=== PATIENT | male | born 1970 ===

== ENCOUNTER 2018-11-21 08:00 | Inpatient (IN) | payer OTHER ==
[~2018-11-21] VITALS: Ht 167.6 cm; Wt 99.8 kg
[2018-11-21] MEDS ORDERED: LISINOPRIL PO (08:54)
[2018-11-26] MEDS ORDERED: HYDROCHLOROTH12.5 M1 PO (11:18)
[2018-11-26] MEDS ORDERED: NIFEDIPINE ER60 MG PO (11:18)
[2018-11-27] MEDS ORDERED: LISINOPRIL40 MG PO (07:57)
[2018-11-29] MEDS ORDERED: PERCOCET 5-3251 EACH PO (15:25)
[2018-11-29] MEDS ORDERED: ELIQUIS2.5 MG PO (15:25)
[2018-11-29] MEDS ORDERED: DUI500 PO (15:25)
== END 2018-11-30 07:31 | disposition home or self-care (01) | DRG 470 ==
LOC: SURG 11-27 05:01 → O/R 11-27 05:01 → SURH 11-27 07:00 → SURG 11-27 13:29
PROVIDERS: ADMIT Orthopaedic Surgery
PROC: 0MNN0ZZ Release Right Knee Bursa and Ligament, Open Approach (ICD-10-PCS; 2018-11-27)
PROC: 0SRC0J9 Replacement of Right Knee Joint with Synthetic Substitute, Cemented, Open Approach (ICD-10-PCS; principal; 2018-11-27 07:00)
DX: M17.11 Unilateral primary osteoarthritis, right knee (principal); M80.00XA Age-related osteoporosis with current pathological fracture, unspecified site, initial encounter for fracture; D62 Acute posthemorrhagic anemia; M22.11 Recurrent subluxation of patella, right knee; E66.09 Other obesity due to excess calories; I10 Essential (primary) hypertension

== ENCOUNTER 2021-06-23 10:45 | Inpatient (IN) | payer OTHER ==
[~2021-06-23] VITALS: Ht 167.6 cm; Wt 108.9 kg
[~2021-06-23 10:45] MED LIST: DUI500 PO; ELIQUIS2.5 MG PO; HYDROCHLOROTH12.5 M1 PO; LISINOPRIL PO; LISINOPRIL40 MG PO; NIFEDIPINE ER60 MG PO; PERCOCET 5-3251 EACH PO
[2021-06-29] MEDS ORDERED: OMEPRAZOLE40 MG (15:18)
[2021-06-29] MEDS ORDERED: CHLORTHALIDONE50 MG (15:18)
[2021-06-29] MEDS ORDERED: SIMVASTATIN20 MG (15:18)
[2021-06-29] MEDS ORDERED: PANTOPRAZOLE SO40 MG (15:18)
[2021-07-01] MEDS ORDERED: DUI500 PO (15:34)
[2021-07-01] MEDS ORDERED: ELIQUIS2.5 MG PO (15:34)
[2021-07-01] MEDS ORDERED: PERCOCET 5-3251 EACH PO (15:34)
== END 2021-07-01 17:22 | disposition home or self-care (01) | DRG 470 ==
LOC: SURH 06-29 10:45 → O/R 06-29 14:54 → SURH 06-29 16:30
PROVIDERS: ADMIT Orthopaedic Surgery; ATTEND Orthopaedic Surgery
PROC: 0SRD0J9 Replacement of Left Knee Joint with Synthetic Substitute, Cemented, Open Approach (ICD-10-PCS; principal; 2021-06-29 16:30)
DX: M17.12 Unilateral primary osteoarthritis, left knee (principal); D62 Acute posthemorrhagic anemia; I10 Essential (primary) hypertension; Z20.822 Contact with and (suspected) exposure to COVID-19